=== PATIENT | female | born 2000 | race Hispanic/Latino ===

== ENCOUNTER 2025-05-07 05:22 | Emergency (ER) | payer MEDICAID ==
[~2025-05-07] VITALS: Ht 157.5 cm; Wt 82.6 kg
--- NOTE | 2025-05-07 05:56 | ERN ---
ED Note History of Present Illness Stated Complaint: C/O VAGINAL SPOTTING WITH LOWER ABD PAIN Chief Complaint: OB<20 weeks gest. Time Seen by MD: 05:33 Dictation: This is a 24-year-old female apparently presented to the emergency room with complaints of vaginal spotting that started around 5:00 a.m. and she also reports lower abdominal discomfort. No history of any fevers chills or rigors. No massive bleeding per vagina. No dysuria hematuria. Her LMP is February 16, 2025. She stated that she saw an Ob in [facility] and had OB ultrasound at around 10 or 11 weeks of gestation. She is currently around 15 weeks gestation Temperature 98.4 pulse 94 respirations 20 blood pressure 146/93 with a pulse oximetry of 98% on room air Allergies: Coded Allergies: No Known Allergies (Unverified Allergy, Unknown, 05/07/25) Past Medical History Past Medical History: No Pertinent History Surgical History: None Family History: Negative Social History: Negative LMP: Feb 16, 2025 : 1 Para: 0 Aborts: 0 RN Note Reviewed/Agreed w/PFSH: Yes Review of System Dictation Constitutional: Negative for fever,chills, and weight loss Eyes: Negative for injury, pain,redness, and discharge ENT: Negative for injury,pain or swelling Cardiovascular: Negative for chest pain, palpitations, and edema Respiratory: Negative for shortness of breath, cough, and wheezing, Abdomen/GI: Positive for low abdominal pain, nausea, vomiting, diarrhea, and constipation Back: Negative for injury and pain : Negative for injury, positive for vaginal bleeding MS/Extremity: Negative for injury and deformity Skin: Negative for rash, and discoloration Neuro: Negative for headache, weakness, numbness, tingling, and seizure Psych: Negative for suicide ideation, homicidal ideation, and hallucinations Initial Vital Sign VS Vital Signs Date Time Temp Pulse Resp B/P (MAP) Pulse Ox O2 Delivery O2 Flow Rate FiO2 05/07/25 05:29 98.4 94 20 146/93 98 Room Air 05/07/25 05:51 0 21 Physical Exam Dictation General: awake, alert, NAD morbidly obese female tearful and anxious Head/Face: Normocephalic, atraumatic Eyes: PERRL, EOMI, vision at baseline ENT: oral cavity clear, TMs clear, no signs of infection Neck: Trachea midline, supple, no nuchal rigidity Cardiovascular: RRR, normal S1/S2, No MRGs, no JVD Respiratory: CTAB, no respiratory distress, No rales or wheezes Abdomen: Soft, non-tender, non-distended, normal bowel sounds, no guarding or rebound. Abdomen is very obese Skin: Warm, dry, normal turgor, no rash MS/Extremity: Pulses equal, no cyanosis, neurovascular intact, FROM Neuro: COAx4, GCS 15, strength 5/5, CN 2-12 intact, normal cerebellar exam, normal gait, Psych: Normal behavior, mood, and affect normal Extremities-trace edema without any palpable cords, Homans sign is negative Pelvic exam deferred Results (Laboratory/Radiology) Laboratory/Radiology Laboratory Tests Test 05/07/25 05:50 05/07/25 06:31 White Blood Count 14.6 K/uL (4.8-10.8) H Red Blood Count 4.50 MIL/uL (4.00-5.50) Hemoglobin 13.1 g/dL (12.0-16.0) Hematocrit 37.8 % (36-48) Mean Corpuscular Volume 84.0 fL (79-99) Mean Corpuscular Hemoglobin 29.1 pg (27.0-33.0) Mean Corpuscular Hemoglobin Concent 34.7 g/dL (32.0-36.0) Red Cell Distribution Width 12.4 % (11.0-15.5) Platelet Count 327 K/uL (130-400) Mean Platelet Volume 9.4 fL (7.5-10.5) Immature Granulocyte % (Auto) 0.7 % (0-1) Neutrophils (%) (Auto) 81.1 % (40.0-77.0) H Lymphocytes (%) (Auto) 13.6 % (21.0-51.0) L Monocytes (%) (Auto) 4.1 % (3.0-13.0) Eosinophils (%) (Auto) 0.3 % (0.0-8.0) Basophils (%) (Auto) 0.2 % (0.0-5.0) Neutrophils # (Auto) 11.8 K/uL (1.8-7.7) H Lymphocytes # (Auto) 2.0 K/uL (1.0-4.8) Monocytes # (Auto) 0.6 K/uL (0.1-1.0) Eosinophils # (Auto) 0.04 K/uL (0.00-0.70) Basophils # (Auto) 0.03 K/uL (0.00-0.20) Absolute Immature Granulocyte (auto 0.10 K/uL (0-1) Nucleated Red Blood Cells 0.0 % (0.0-0.19) Human Chorionic Gonadotropin, Quant 98759 mIU/mL (0-5) H Urine Color LIGHT-YELLOW (YELLOW) Urine Appearance CLEAR (CLEAR) Urine pH 6.0 (5.0-8.0) Urine Specific [place] 1.014 (1.001-1.031) Urine Protein NEGATIVE mg/dL (NEGATIVE) Urine Glucose (UA) NEGATIVE mg/dL (NEGATIVE) Urine Ketones NEGATIVE mg/dL (NEGATIVE) Urine Occult Blood MODERATE (NEGATIVE) H Urine Nitrate NEGATIVE (NEGATIVE) Urine Bilirubin NEGATIVE mg/dL (NEGATIVE) Urine Urobilinogen 0.2 mg/dL (0.2-1.0) Urine Leukocyte Esterase 25 Jackie/uL (NEGATIVE) H Urine RBC 11-25 /HPF (0-1) H Urine WBC 2-5 /HPF (0-1) H Urine Squamous Epithelial Cells FEW /HPF (0-2) Urine Bacteria RARE /HPF (None Seen) Labs Reviewed?: Yes Ultrasound Comment: REASON: vaginal spotting ORDERING PHYSICIAN: GREY MELVIN MD PROCEDURE: OB <14 - US OB <14 WEEKS EXAM: US Obstetrical, Complete < 14 weeks. CLINICAL HISTORY: Vaginal spotting, . TECHNIQUE: Transabdominal imaging of the maternal pelvis and less than 14-week gestation with image documentation. COMPARISON: None provided. FINDINGS: FETUS: There is a single living intrauterine gestation. PRESENTATION: position is cephalic at the time of the scan HEART RATE: The heart rate is 153 beats per minute. BIOMETRICS: Biparietal diameter measures 2.44 cm, corresponds to 14 weeks, 5 days Head circumference measures 10.19 cm, corresponds to 14 weeks, 6 days Abdomen circumference measures 8 cm corresponds to 14 weeks, 3 days Femur length measures 1.85 cm, corresponds to 15 weeks, 4 days Composite age - 14 weeks 6 days Estimated weight- 110 g. ANATOMIC SURVEY: The visualized anatomy is unremarkable. PLACENTA: The placenta is grade I maturity, posterior with evidence of marginal previa. AMNIOTIC FLUID: Decreased, YULIANA- 0.92. CERVIX: Closed. Unremarkable as visualized. IMPRESSION: Single live intrauterine gestation corresponding to 14 weeks 6 days in cephalic presentation with decreased amniotic fluid. Marginal previa at the time of the scan /[place] DICTATED BY: AMPARO LUNDY Jr., MD DATE: 05/07/25909 ELECTRONICALLY SIGNED BY: AMPARO LUNDY Jr., MD DATE: 05/07/25909 ED Course ED Course Orders Procedure Category Date Status Time Cbc With Differential LAB 05/07/25 Complete 05:47 Abo/Rh BBK 05/07/25 Complete 05:47 Hcg,Quantitative LAB 05/07/25 Complete 05:47 Urinalysis Profile LAB 05/07/25 Complete 05:50 Us Ob <14 Weeks US 05/07/25 Resulted 05:56 0.9%Nacl 1000ml (Ns PHA 05/07/25 Complete 1000ml) 06:00 Ceftriaxone 1g Vial PHA 05/07/25 Complete (Rocephine 1g Inj) 07:00 Current Medications Medications (Trade) Dose Ordered Sig/[place] Route PRN Reason Start Time Stop Time Status Last Admin Dose Admin Ceftriaxone Sodium (ROCEphine 1G INJ) 1 gm ONCE ONCE IVPB 05/07/25 07:00 05/07/25 07:02 DC 05/07/25 07:34 Sodium Chloride 1,000 ml @ 0 mls/hr ONCE ONCE IV 05/07/25 06:00 05/07/25 06:07 DC 05/07/25 06:12 Vital Signs Date Time Temp Pulse Resp B/P (MAP) Pulse Ox O2 Delivery O2 Flow Rate FiO2 05/07/25 09:20 98.1 97 17 125/71 99 Room Air* 0 05/07/25 08:08 98.1 99 16 121/73 99 Room Air* 0 05/07/25 05:51 98.1 86 18 115/65 99 Room Air* 0 05/07/25 05:29 98.4 94 20 146/93 98 Room Air We will perform diagnostic labs, advanced imaging and administer medications according to the patient's complaint. Once the results are available, will review and personally interpreted the labs to rule out any acute life- threatening emergency the trach require immediate intervention and treatment. I will then re-evaluate the patient after treatment and diagnostic exams have return to determine whether the patient requires any further testing, can safely be discharged home or need further admission to hospital for additional treatment and evaluation. Labs reviewed CBC showed a white count of 14.5. Urinalysis was abnormal for positive leuko esterase and WBCs. Beta hCG was positive 7:00 a.m. I transferred the care to Dr. Rivera. Preliminary ultrasound at the time of sign-out showed the patient had very little amniotic fluid with a live single fetus. Patient may need to be transferred to [facility] for OBGYN services due to lack of availability here Medical Decision Making MDM MDM: Differential diagnosis: Hormonal changes, threat of , UTI, subchorionic hemorrhage, Rationale: Tests considered and ordered secondary to shared decision making include: Previous outside records reviewed: Old ER visits. Risk of complication and/or morbidity or mortality of patient management: None Medications-Per medication reconciliation Need for hospitalization: Patient does not meet criteria for hospitalization. Need for emergency major/minor surgery: No There are no social concerns with this patient. Prescription drug management Prescriptions will include symptomatic care Patient's prior external medical records from other ER visits were reviewed by me as indicated. Prior testing and results from previous visits were reviewed. Prior tests were taken into account with medical decision making and resource utilization, independent historian/historians were used to obtain complete medical history. I independently interpreted the test that were performed, results were reviewed by me and considered findings on radiology if ordered. Medical management and examination interpretation discussions were had by me with other qualified healthcare professionals as indicated for the patient's care. Problem List Problem List: (1) Vaginal bleeding in patient at less than 20 weeks gestation (2) History of impaired glucose tolerance (3) Obesity (BMI 30.0-34.9) DX & DISP Disposition: Transfer Departure Impression: Primary Impression: Vaginal bleeding in patient at less than 20 weeks gestation Additional Impressions: History of impaired glucose tolerance, Obesity (BMI 30.0-34.9) Condition: Stable Additional Instructions: Patient and the caregiver have been informed of all the diagnostic tests and the imaging conducted during the today's visit to the emergency room and has v erbalized understanding of the results I have personally reviewed and interpreted all diagnostic exams performed here in the ER today as well as the vital signs documented by the nursing staff. The patient is now being discharged to home and should follow up with the primary care physician or the specialist as directed by the ER staff. Follow-up with primary care provider in 1 to 2 days. Take medications as directed here in the emergency room. Okay to continue home medications unless otherwise discussed during your visit in the emergency room today. Return to your nearest emergency room if symptoms worsen or if there is no improvement. Call 911 if you need immediate assistance. Take Tylenol or Motrin [id number] as needed and if no contraindications are present. Increase oral hydration. A wound culture or urine culture was ordered here in the emergency room department please follow-up with primary care provider and advise them to get repeat ports from our facility. If you had any Won wrap/splints that were applied here, please do not remove them until you see your primary care or specialty. Patient needs to see an OBGYN in [place] or at least follow up with her Ob in [facility]. Patient transferred to [facility] OBGYN services Referrals: SELF,REFERRAL (PCP) GREY MELVIN MD May 07, 2025 05:56
[2025-05-07 06:06] LABS: IMMATURE GRANULOCYTE ABSOLUTE 0.10 K/uL (0-1); NUCLEATED RED BLOOD CELLS 0.0 % (0.0-0.19); PLATELET COUNT (AUTO) 327 K/uL (130-400); RED BLOOD CELL COUNT(AUTO) 4.50 MIL/uL (4.00-5.50); RED CELL DISTRIBUTION WIDTH 12.4 % (11.0-15.5); WHITE BLOOD COUNT (AUTO) 14.6 K/uL (4.8-10.8)
[2025-05-07] MEDS: 0.9%NACL 1000ML 1,000 ML IV ONE (06:12)
[2025-05-07 06:58] LABS: APPEARANCE,URINE CLEAR (CLEAR); GLUCOSE, URINE (UA) NEGATIVE (NEGATIVE); LEUKOCYTE ESTERASE ,URINE 25 Leu/uL (NEGATIVE); NITRATE,URINE NEGATIVE (NEGATIVE); OCCULT BLOOD,URINE MODERATE (NEGATIVE)
[2025-05-07 07:01] LABS: ADD UA MICROSCOPIC YES
[2025-05-07 07:03] LABS: SQUAMOUS EPITHELIAL CELL,UR FEW /HPF (0-2)
--- NOTE | 2025-05-07 08:11 | HMCIMG ---
EXAM: US Obstetrical, Complete < 14 weeks. CLINICAL HISTORY: Vaginal spotting, . TECHNIQUE: Transabdominal imaging of the maternal pelvis and less than 14-week gestation with image documentation. COMPARISON: None provided. FINDINGS: FETUS: There is a single living intrauterine gestation. PRESENTATION: position is cephalic at the time of the scan HEART RATE: The heart rate is 153 beats per minute. BIOMETRICS: Biparietal diameter measures 2.44 cm, corresponds to 14 weeks, 5 days Head circumference measures 10.19 cm, corresponds to 14 weeks, 6 days Abdomen circumference measures 8 cm corresponds to 14 weeks, 3 days Femur length measures 1.85 cm, corresponds to 15 weeks, 4 days Composite age - 14 weeks 6 days Estimated weight- 110 g. ANATOMIC SURVEY: The visualized anatomy is unremarkable. PLACENTA: The placenta is grade I maturity, posterior with evidence of marginal previa. AMNIOTIC FLUID: Decreased, YULIANA- 0.92. CERVIX: Closed. Unremarkable as visualized. IMPRESSION: Single live intrauterine gestation corresponding to 14 weeks 6 days in cephalic presentation with decreased amniotic fluid. Marginal previa at the time of the scan /[place]
--- NOTE | 2025-05-07 08:23 | NUR ---
TRANSFER: CALL [facility]; TRANSFER INITIATED FOR OB SERVICES. PATIENT IS , 15WKS WITH LOW AMNIOTIC FLUID.
[2025-05-07 09:20] VITALS: BP 125/71; PULSE 97; RESP 17; TEMP 98.1; O2SAT 99
--- NOTE | 2025-05-07 09:30 | NUR ---
CALLED REPORT TO [facility] TRIAGE ED, SPOKE TO FABRIZIO LARIOS.
--- NOTE | 2025-05-07 09:55 | NUR ---
stec ems by to sweet pickle maker pt.
== END 2025-05-07 10:13 | disposition short-term general hospital (02) ==
LOC: EDH 05:22
DX: O20.9 Hemorrhage in early pregnancy, unspecified (principal); O99.212 Obesity complicating pregnancy, second trimester; O26.891 Other specified pregnancy related conditions, first trimester; R10.2 Pelvic and perineal pain; Z3A.12 12 weeks gestation of pregnancy
CPT/HCPCS: 99285; 96365; 76801; 96361; 84702; 85025; 86900; 86901; 81001; 36415; J7030; J0696